=== PATIENT | male | born 1940 | race Caucasian/White ===

== ENCOUNTER 2019-01-05 11:25 | Observation (INO) ==
--- NOTE | 2019-01-05 12:29 | Diag Imaging Result Doc PS360 ---
EXAM: CHEST-PORTABLE HISTORY: syncope TECHNIQUE: Portable chest single view COMPARISON: 04/20/2018 FINDINGS: The lungs are well expanded. The heart is not enlarged. There is a left-sided pacemaker. The vessels are not distended. There are no infiltrates. No effusion identified. IMPRESSION: Negative exam. Electronically signed by Herrera Serrano 01/05/2019 12:27 PM
[2019-01-05 12:44] LABS: BASO# 0.02 X1000 (0.0-0.2); BASO% 0.2 % (0.0-0.8); EOS# 0.16 X1000 (0.0-0.7); EOS% 1.5 % (0.0-10.0); HEMATOCRIT 40.5 % (42.0-52.0); HEMOGLOBIN 13.9 g/dL (14.0-18.0); IMM GRAN# 0.06 X1000 (0.0-0.04); IMM GRAN% 0.6 % (0.0-0.5); LYMPH# 1.25 X1000 (1.2-3.4); LYMPH% 11.8 % (20.5-51.1); MCH 31.2 PG (27-31); MCHC 34.3 g/dL (33-37); MCV 90.8 FL (81-99); MONO# 1.05 X1000 (0.11-0.59); MONO% 9.9 % (1.7-9.3); MPV 10.2 FL (7.4-10.4); NEUT# 8.09 X1000 (1.4-6.5); PLT 148 X1000 (130-400); RBC 4.46 XMIL (4.7-6.1); RDW 12.8 % (11.5-14.5); WBC 10.63 X1000 (4.8-10.8)
[2019-01-05 12:45] LABS: INR 0.96; PROTIME 13.6 Seconds (11.0-16.0)
[2019-01-05 12:46] LABS: PTT 25.3 Seconds (22.3-41.8)
[2019-01-05 12:59] LABS: ALB/GLOB RATIO 1.5; CALCIUM 10.6 mg/dL (8.8-10.2); CREATININE 1.4 mg/dL (0.7-1.2); TOTAL BILIRUBIN 0.55 mg/dL (0.20-1.00); TOTAL PROTEIN 6.7 g/dL (6.3-8.3)
[2019-01-05 13:49] LABS: URINE SOURCE CLEAN CATCH
[2019-01-05 14:02] LABS: BILIRUBIN URINE NEGATIVE (NEGATIVE); BLOOD URINE TRACE (NEGATIVE); COLOR YELLOW; GLUCOSE URINE NEGATIVE (NEGATIVE); KETONE URINE 20 mg/dL (NEGATIVE); LEUKOCYTES URINE LARGE (NEGATIVE); NITRITE URINE NEGATIVE (NEGATIVE); PROTEIN URINE TRACE mg/dL (NEGATIVE); SP GRAVITY URINE 1.002; TURBIDITY URINE HAZY (CLEAR); UROBILINOGEN URINE NORMAL (NORMAL)
[2019-01-05 14:05] LABS: UR EPITHELIAL CELLS <10 /HPF (<10); URINE BACTERIA 4+ /HPF; URINE RBC <10 /HPF (<10); URINE WBC TNTC /HPF (<10)
--- NOTE | 2019-01-05 14:46 | Diag Imaging Result Doc PS360 ---
EXAM: CT HEAD W/O CONTRAST - 01/05/2019 HISTORY: syncope TECHNIQUE: CT head without contrast COMPARISON: 04/20/2018 FINDINGS: There are atrophic changes and mild chronic microvascular ischemic changes similar to prior. There is no indication of recent infarct, although acute infarcts may not be immediately visible. There is no evidence of intracranial hemorrhage, mass effect, midline shift, or hydrocephalus. IMPRESSION: No visible acute intracranial abnormality. No hemorrhage or mass effect. This exam was performed using automated exposure control, adjustment of mA or kV according to patient size, and/or use of iterative reconstruction technique. Electronically signed by Alphonso Domínguez 01/05/2019 2:44 PM
[2019-01-05] MEDS ORDERED: ROCEPHIN 1 GM in NS 50 ML IV ONE (15:18)
--- NOTE | 2019-01-05 16:19 | Diag Imaging Result Doc PS360 ---
EXAM: CT ANGIOGRAM NECK 01/05/2019 HISTORY: syncope/neck pain TECHNIQUE: This exam was performed using automated exposure control, adjustment of mA or kV according to patient size, and/or use of iterative reconstruction technique. COMMENT: 3-D MIPS were performed. There are no previous studies available for comparison. Both common carotid arteries are tortuous. There is heavy calcification present in the left carotid bulb. There is no apparent significant stenosis. The right vertebral artery is smaller than the left. There are some calcifications present in the proximal left vertebral artery. No evidence of aneurysm is present. There are hypertrophic changes in the cervical spine. IMPRESSION: Calcified plaque in the left carotid bulb without definite stenosis. Electronically signed by Tee Russell 01/05/2019 4:17 PM
[2019-01-05] MEDS ORDERED: NS 1,000 ML IV ONE (17:05)
[2019-01-05] MEDS ORDERED: LASIX IV ONE (19:26)
--- NOTE | 2019-01-05 19:49 | HISTORY AND PHYSICAL ---
PRIMARY CARE PHYSICIAN: Dario Kasper MD. MACHINE TECHNICIAN: Red Galindo MD. CHIEF COMPLAINT: Near syncope. HISTORY OF PRESENT ILLNESS: Mr. 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 He reports being in the shower today. As he was washing his hair, his vision became blurry and he closed his eyes and saw green and then black. He immediately got out of the shower and sat down on the commode. He did not pass out. He tried to alert his , but she was on the other side of the house and did not hear him. He stood up and tried to walk to the bed, at which point he became dizzy with the same type of visual symptoms as he had in the shower. He lay down on the bed and again did not pass out. At that point his came to check on him, and they came to the ER. He did report a few episodes somewhat similar to this last week. As he as bending to machine pecan picker objects, he would stand up and become dizzy. He denies any preceding chest pain. No slurred speech. No unilateral weakness. His does not report any confusion. The whole episode today lasted around 30 minutes. In the ER he had a head CT done which did not show anything acute. A neck CTA was also done, which showed calcified plaque in the left carotid bulb without definite stenosis. His laboratory data showed some mild anemia, some renal insufficiency and some mild hypercalcemia. He also reports last week he had some dysuria and continues to have difficulty starting stream. His urinalysis does show 4+ bacteria with large leukocytes and ssw-[id number]-ut-count WBCs. He has been admitted. We will start IV fluids and admit him for observation status. PAST MEDICAL HISTORY: 1. Tachy-britany syndrome, status post pacemaker. 2. Hypertension. 3. Chronic back pain. 4. MDS. 5. History of TIA. 6. Coronary artery disease. 7. Type 2 diabetes. PAST SURGICAL HISTORY: 1. Pacemaker placement. 2. Cholecystectomy. 3. Lumbar spine surgery. 4. ERCP with sphincterotomy and stone extraction. SOCIAL HISTORY: No tobacco, alcohol or drug use. His is at the bedside. REVIEW OF SYSTEMS: A 14-point review of systems was obtained and found to be negative with the exception of the HPI. ALLERGIES: Codeine, Reglan, and risperidone. HOME MEDICATIONS: Not yet compiled by the nursing staff. Will reconcile appropriately once placed in the computer. PHYSICAL EXAMINATION: VITAL SIGNS: Blood pressure 141/83, heart rate 82, respiratory rate 20, 02 saturation 96% on room air, temperature 97.5. GENERAL: Elderly-appearing 78-year-old male, lying in the hospital bed in no acute distress. NEUROLOGIC: He is oriented and follows commands without focal deficits. HEENT: Head is atraumatic, normocephalic. Pupils equal, round, and reactive to light. Oral mucosa is dry. Trachea is midline. There is no JVD. No carotid bruits. CHEST: Clear to auscultation bilaterally. CV: Regular rate and rhythm. S1 and S2 noted. GI: Soft, nondistended, nontender. Bowel sounds positive . EXTREMITIES: No edema. Pulses 1+ bilaterally. DIAGNOSTIC DATA: Head CT negative. CTA of the neck: Calcified plaque in the left carotid bulb without stenosis. WBCs 10.63, hemoglobin 13.9, hematocrit 40.5, platelet count 148. INR 0.96. Sodium is 137, potassium 4, chloride 98. CO2 is 22, anion gap 17, BUN 24, creatinine 1.4, glucose 149. Calcium 10.6. LFTs negative. Troponin negative x1 set, proBNP 172. UA does show a UTI. ASSESSMENT/PLAN: 1. Near-syncopal episode: The patient is volume depleted on physical exam and on labs, with mild elevation in his calcium and creatinine. Will continue IV fluids, trend cardiac enzymes and monitor response. If he is improved in the morning, then we will probably discharge him. If not, he may need his pacemaker evaluated. We will also treat his underlying urinary tract infection. 2. Acute kidney injury: Again likely volume depletion, prerenal in nature. Will continue IV fluids, check urine electrolytes and calculate a FENa. 3. Urinary tract infection. The patient is symptomatic. Will treat with IV Rocephin and transition to oral in the next 24 hours. 4. Sick sinus syndrome, status post pacemaker: The patient denies chest pain. For now will monitor his telemetry. If he has any abnormalities, would consider a Cardiology consult and evaluation of pacemaker. 5. Diabetes mellitus type 2. Will check to make sure his hemoglobin A1c is up to date. Pattern sugar and sliding scale insulin. 6. Deep venous thrombosis prophylaxis with sequential compression devices. 7. Further recommendations to follow. Dictated by DEDRA Boyd for Bartolo Boudreaux MD cc: DEDRA Boyd MD
--- NOTE | 2019-01-05 20:53 | HISTORY AND PHYSICAL ---
ADDENDUM - HISTORY AND PHYSICAL: Mr. Pastor came into the emergency department this morning. I saw him in the ER. The was at the bedside at the time of the encounter. Mr. Pastor refers that he was taking a shower. He felt some nauseating in his stomach and he started having a tunnel vision. He came out, was down and went and sat on the bedside commode. He felt better. After that he started walking to the bedside and he felt the same, almost passed out. He called out to the who came to his assistance and he was brought here to the emergency room. His orthostatic vitals revealed : supine his blood pressure was 128/70, by sitting up his blood pressure went down to 91/55, which was remarkably positive and this was associated with symptoms. I have also reviewed his imaging studies, including a head CT scan and a CTA of the neck. LABORATORY WORK: His current lab work has also been reviewed. His creatinine is up to 1.4. The baseline is 1.0 just March of last year. ASSESSMENT: 1. Syncope at home secondary to orthostatic hypotension. 2. Clinical volume depletion. 3. Acute kidney injury secondary to volume depletion. 4. Bilateral nonobstructive carotid plaque without definite stenosis. 5. History of diabetes mellitus, controlled. 6. Hypertension. PLAN: So, in general, I think Mr. Pastor is doing a little better. He still remains remarkably dehydrated. We are going to continue with the IV fluids. We will withhold his blood pressure medications and re-evaluate him tomorrow morning. I have also reviewed the History and Physical that has been dictated by the SALES REPRESENTATIVE JEWELRY, I agree. Please refer to the details in the chart. cc: Bartolo Boudreaux MD MTDD
[2019-01-05] MEDS: HUMULIN R SUBQ SCH (22:32)
[2019-01-06] MEDS: NS 1,000 ML IV SCH ×4 (00:05→19:47)
--- NOTE | 2019-01-06 07:05 | PROVIDER DOCUMENTATION ---
This chart was entered by Nakita Madrid Scribe, acting as scribe for Rohit Ludwig MD. HPI-General Adult - General Chief Complaint: Near Syncope Stated Complaint: NEAR SYNCOPE Time Seen by Provider: 01/05/19 12:03 Source: patient, family, EMS Allergies/Adverse Reactions: Patient Allergies Allergy/AdvReac Type Severity Reaction Status Date / Time codeine Allergy Unknown Verified 04/20/18 20:16 metoclopramide HCl * Allergy Unknown Verified 04/20/18 20:16 [From Reglan] risperidone [From Risperdal] Allergy Unknown Verified 04/20/18 20:16 Home Medications: Home Medication List Medication Instructions Recorded Confirmed Last Taken Type Aspirin 81 mg PO DAILY 02/26/14 04/21/18 04/20/18 09:00 History Clopidogrel Bisulfate [Plavix] 75 mg PO DAILY 02/26/14 04/21/18 04/20/18 09:00 History Finasteride [Proscar] 5 mg PO QHS 02/26/14 04/21/18 04/20/18 09:00 History Niacin E.r. [Niaspan] 2,000 mg PO QHS 02/26/14 04/21/18 04/20/18 21:00 History Multivitamin with Minerals 1 each PO DAILY 02/27/14 04/21/18 04/20/18 09:00 Hi story [Multiple Vitamin] Allopurinol 300 mg PO DAILY 05/14/16 04/21/18 04/20/18 09:00 History Nystatin Powder [Mycostatin Powder] 1 applicatn TOP BID 04/21/18 04/21/18 Unknown History Nystatin/Triamcin Cream [Mycolog 04/21/18 04/21/18 Unknown History Cream] - History of Present Illness -Gen Adult Nature of Presenting Problems: 78 yowm presents to the ed with c/o near syncope and dizziness. pt sts was in the shower when he felt faint. pt was able to get out sit on the toilet rest and then go lay in the bed. pt on exam is nontoxic in appearance and has family at bedside pt c/o posterior neck pain and sts change of position makes dizziness worse Location of Pain/Injury: reports: neck (posterior bilateral muscle spasm) Pain Radiation: reports: no radiation Quality of Pain: reports: aching Severity: reports: moderate Onset/Duration: reports: just prior to arrival Timing: reports: improving Context/Activities at Onset: reports: light activity Modifying Factors: improves with: nothing Associated Symptoms: reports: back/neck pain (posterior neck pain), dizziness. denies: chest pain, fever/chills, nausea, shortness of breath, syncope (near syncope), vomiting Similar Symptoms Previously?: Yes Recently seen or treated by another doctor?: No Review of Systems - Adult - REVIEW OF SYSTEMS - ADULT Constitutional: denies: chills, fever Eyes: reports: no symptoms reported Ears, Nose, Mouth & Throat: reports: no symptoms reported Cardiovascular: denies: chest pain, palpitations, syncope (near syncope) Respiratory: reports: no symptoms reported Gastrointestinal: denies: abdominal pain, diarrhea, nausea, vomiting Genitourinary: reports: no symptoms reported Musculoskeletal: reports: see HPI, muscle aches, neck pain Integumentary: reports: no symptoms reported Neurological: denies: dizziness/vertigo, headache/migraines, slurred speech, syncope, tremors Psychiatric: reports: no symptoms reported Endocrine: reports: no symptoms reported Hematologic/Lymphatic: reports: no symptoms reported Allergic/Immunologic: reports: no symptoms reported All Other Systems: Reviewed and Negative Past History - Adult - PAST MEDICAL HISTORY-ADULT Review of Records: reports: Nursing Assessment Review, Medications Reviewed Major Childhood Illnesses: reports: denies history Cardiovascular: reports: HTN, hyperlipidemia, pacemaker Respiratory: reports: sleep apnea Gastrointestinal: reports: denies history Genitourinary: reports: denies history Musculoskeletal: reports: chronic pain (back) Neurological: reports: TIA Endocrine/Immune: reports: Diabetes Other Conditions: reports: other (sick sinus syndrome w/ pacemaker, Agent [place] exposure, B12 deficiency, MDS) - PRIOR SURGERIES/PROCEDURES Surgical/Procedure History: reports: cholecystectomy, pacemaker (2001, 2011), other (pacemaker, back L4 L5/fibroma removed from R breast, L leg) - IMMUNIZATION STATUS Childhood Immunizations: See Nurse Assessment Flu Vaccine: See Nurse Assessment - FAMILY HISTORY Family History: reviewed, not pertinent - SOCIAL HISTORY Smoking: quit greater than 1 year Substance Use: denies Alcohol Use Frequency: never Living Situation: family Physical Exam-General - PHYSICAL EXAM-ADULT Initial Vital Signs Reviewed: Yes - CONSTITUTIONAL General Appearance: alert, no apparent distress, obese - EYES Eyes: PERRL/EOMI, pink conjunctivae - HEAD, EARS, NOSE, MOUTH & THROAT HENMT: moist mucous membranes, normal ENT inspection - NECK Neck: full range of motion, supple, normal inspection, tender lateral (bilate ral) - RESPIRATORY Respiratory: chest non-tender, lungs clear, normal breath sounds - CARDIOVASCULAR Cardiovascular: normal peripheral pulses, regular rate, rhythm - GASTROINTESTINAL (ABDOMEN) Abdominal Exam: normal bowel sounds, non tender, soft - LYMPHATIC Lymphatic: no adenopathy - MUSCULOSKELETAL Back Exam: normal inspection, no CVA tenderness, no vertebral tenderness Extremity: normal capillary refill, pelvis stable - SKIN Integumentary: normal turgor, warm/dry, pallor - NEUROLOGIC Neurologic: grossly normal, no motor/sensory deficits - PSYCHIATRIC Psych/Mental Status: normal mood/affect, normal thought content, normal thought process, oriented x 3 Progress - PLAN OF CARE/RESULTS Progress/Plan/Lab Results: Vital Signs - 8 hr 01/05/19 11:27 Temperature 97.5 F L Pulse Rate 90 Respiratory Rate 20 Blood Pressure 126/72 O2 Sat by Pulse Oximetry 94 L Orders Category Date Time Status ED: Orthostatic Vital Signs (E as directed Care 01/05/19 12:15 Active CHEST-PORTABLE [RAD] Stat Exams 01/05/19 12:[address] HEAD W/O CONTRAST [CT] Stat Exams 01/05/19 12:15 Ordered CTA [CT ANGIOGRAM NECK] [CT] Stat Exams 01/05/19 12:16 Ordered CBC WITH ELECTRONIC DIFF [HEME] Stat Lab 01/05/19 12:20 Ordered CK PROFILE [SP CHEM] Stat Lab 01/05/19 12:20 Ordered COMPREHENSIVE METABOLIC PANEL [CHEM] Stat Lab 01/05/19 12:20 Ordered PRO B-NATRIURETIC PEPTIDE Stat Lab 01/05/19 12:20 Ordered PROTIME WITH INR [COAG] Stat Lab 01/05/19 12:20 Ordered PTT [COAG] Stat Lab 01/05/19 12:20 Ordered TROPONIN T Stat Lab 01/05/19 12:20 Ordered URINALYSIS W/POSS RFLX CULT [URINALYSIS] Stat Lab 01/05/19 12:15 Uncollected Result Diagrams: 01/05/19 12:12 01/05/19 12:12 - REASSESSMENT Reassessment #1 Time Reassessed: 13:51 Status: improving Reassessment #2 Time Reassessed: 17:16 Status: unchanged - EKG 1 Time of EKG reading by physician:: 12:07 EKG Read and Signed by:: Rohit Ludwig EKG Interpretation (*Must complete 3 of following elements*): Normal Rate: 92 Rhythm: sinus rhythm with occ pvc and fusion copmplexes [place]: normal QRS: PVC's [place] Interval: normal ST Wave: normal - XRAY 1 XRAY: Bilateral XRAY Study: Chest Impression: See EMR Report (EXAM: CHEST-PORTABLE HISTORY: syncope TECHNIQUE: Portable chest single view COMPARISON: 04/20/2018 FINDINGS: The lungs are well expanded. The heart is not enlarged. There is a left-sided pace maker. The vessels are not distended. There are no infiltrates. No effusion identified. IMPRESSION: Negative exam. Electronically signed by Herrera Serrano 01/05/2019 12:27 PM 01/05/19 1227 Interpreting Physician: Herrera Serrano MD Dictated Date/Time: 01/05/19 1226 cc: Rohit Ludwig MD; Dario Kasper) - CT/MRI 1 CT Study: Head Impression: See EMR Report (EXAM: CT HEAD W/O CONTRAST - 01/05/2019 HISTORY: syncope TECHNIQUE: CT head without contrast COMPARISON: 04/20/2018 FINDINGS: There are atrophic changes and mild chronic microvascular ischemic changes similar to prior. There is no indication of recent infarct, although acute infarcts may not be immediately visible. There is no evidence of intracranial hemorrhage, mass effect, midline shift, or hydrocephalus. IMPRESSION: No visible acute intracranial abnormality. No hemorrhage or mass effect. This exam was performed using automated exposure control, adjustment of mA or kV according to patient size, and/or use of iterative reconstruction technique. Electronically signed by Alphonso Domínguez 01/05/2019 2:44 PM 01/05/19 1444 Interpreting Physician: Alphonso Domínguez MD Dictated Date/Time: 01/05/19 1441 cc: Rohit Ludwig MD; Dario Kasper) 2 CT Study: Angiogram Impression: See EMR Report (EXAM: CT ANGIOGRAM NECK 01/05/2019 HISTORY: syncope/neck pain TECHNIQUE: This exam was performed using automated exposure control, adjustment of mA or kV according to patient size, and/or use of iterative reconstruction technique. COMMENT: 3-D MIPS were performed. There are no previous studies available for comparison. Both common carotid arteries are tortuous. There is heavy calcification present in the left carotid bulb. There is no apparent significant stenosis. The right vertebral artery is smaller than the left. There are some calcifications present in the proximal left vertebral artery. No evidence of aneurysm is present. There are hypertrophic changes in the cervical spine. IMPRESSION: Calcified plaque in the left carotid bulb without definite stenosis. Electronically signed by Tee Russell 01/05/2019 4:17 PM 01/05/19 1617 Interpreting Physician: Tee Russell MD Dictated Date/Time: 01/05/19 1611 cc: Rohit Ludwig MD; Dario Kasper) - CONSULTS/PCP/HOSPITALIST Notification #1 *Consult/PCP/Hospitalist*: hospitalist arsh at bedside Time Discussed: 15:34 Consult Disposition: Admit Departure - Departure Date of Disposition Decision: 01/05/19 Time of Disposition Decision: 17:22 DIAGNOSIS: Syncope Qualifiers: Syncope type: unspecified Qualified Code(s): R55 - Syncope and collapse Disposition: ADMITTED INPATIENT 09 Certified Medical Emergency: Emergent Condition: Stable Additional Freetext Instructions: ED Follow Up Instructions: You have been treated by a care provider in the Emergency Department. These instructions are being provided to you so you can have an understanding of how to care for yourself upon discharge. Upon discharge from the Emergency Department, you are responsible for making arrangements for follow-up care by a physician of your choice. Take all prescribed medications as directed. Return to the Emergency Department immediately for any new or worsening symptoms. You may call the Physician Referral phone number at [phone] to obtain a list of Physicians who are taking new patients. Referrals and Follow-Ups: Dario Kasper [Primary Care Provider] - - Critical Care Note This patient required my direct & personal management of CC.: Yes Total Time (mins): 38 Critical Care Statement: This patient required my direct personal management to treat or rule out processes, the absence of which, could potentiallly result in sudden, clinically significant life or limb threatening deterioration. Attestation - Physician/ [place] Attestation Patient care was provided by Advanced Practice Provider:: No The physician spent face to face time with patient:: Yes Advanced Practice Provider documentation review:: Supervising physician onsite and consulted in the evaluation and care of this patient. The physician did have a face to face encounter with the patient. This chart was documented by the indicated scribe, (Nakita Madrid Scribe) and accurately reflects the services I performed and decisions made by me, Rohit Ludwig MD, as attested by the provider's signature.
[2019-01-06 07:07] LABS: HEMATOCRIT 36.2 % (42.0-52.0); HEMOGLOBIN 12.3 g/dL (14.0-18.0); MCH 31.1 PG (27-31); MCV 91.4 FL (81-99); MPV 9.7 FL (7.4-10.4); PLT 152 X1000 (130-400); RBC 3.96 XMIL (4.7-6.1); RDW 12.8 % (11.5-14.5); WBC 6.65 X1000 (4.8-10.8)
[2019-01-06 07:08] LABS: BASO# 0.01 X1000 (0.0-0.2); BASO% 0.2 % (0.0-0.8); EOS# 0.21 X1000 (0.0-0.7); EOS% 3.2 % (0.0-10.0); IMM GRAN# 0.03 X1000 (0.0-0.04); IMM GRAN% 0.5 % (0.0-0.5); LYMPH% 21.1 % (20.5-51.1); MONO# 0.78 X1000 (0.11-0.59); MONO% 11.7 % (1.7-9.3); NEUT# 4.22 X1000 (1.4-6.5); NEUT% 63.3 % (42.2-75.2)
[2019-01-06 07:43] LABS: AGAP 10; BUN 19 mg/dL (8-22); CALCIUM 9.6 mg/dL (8.8-10.2); CHLORIDE 105 mmol/L (98-107); COSMO 284; ESTIMATED GFR > 60; GLUCOSE 169 mg/dL (70-104); MAGNESIUM 1.9 mg/dL (1.5-2.7); POTASSIUM 4.1 mmol/L (3.5-5.1); SODIUM 139 mmol/L (136-145); TCO2 24 mmol/L (25-35)
--- NOTE | 2019-01-06 11:25 | EKG Report ---
Test Performed on : 01/05/2019 12:07:23 PM Test Reason : ED. NO EKG ORDER FOR MUSE Blood Pressure : / mmHG Vent. Rate : 092 BPM Atrial Rate : 092 BPM P-R Int : 144 ms QRS Dur : 090 ms QT Int : 360 ms P-R-T Axes : 006 032 047 degrees QTc Int : 445 ms Sinus rhythm. with occasional premature ventricular complexes. and fusion complexes Otherwise normal ECG When compared with ECG of 20-APR-2018 17:55, fusion complexes are now present premature ventricular complexes. are now present Unconfirmed Result
[2019-01-06] MEDS: HUMULIN R SUBQ SCH ×3 (11:27→21:21)
--- NOTE | 2019-01-06 14:08 | CARDIOLOGY CONSULTATION ---
DATE: 01/06/2019 CHIEF COMPLAINT ON PRESENTATION: Near syncope. HISTORY OF PRESENT ILLNESS: Mr. Pastor is a 78-year-old, white male with a history of coronary disease normally followed in my office. I last saw the patient in October 2018. On Friday he reported he woke up and took a shower per his usual fashion. While in the shower he felt quite lightheaded and had some vision changes with blurry and dark vision. He felt very lightheaded. He sat down,recovered after a few minutes, did not have any overt syncope. He then attempted to get out of the shower and go to the bed. Upon walking out of the shower he again and got very lightheaded and made it to the bed and laid down and again recovered after several minutes. He subsequently presented to the hospital for further evaluation. He had no chest pain. He had no overt syncope. He denies any recent orthopnea. He reports recent physical exertion over his usual at home. No recent fevers. PAST MEDICAL HISTORY: 1. Coronary disease with last cardiac catheterization performed in 2007 in [place]. Left main was normal on that study. LAD had mild diffuse disease. Circumflex has 40% ostial disease with a 40% obtuse marginal lesion. Mid circumflex had a widely patent stent. The RCA had a subtotal mid occlusion with well developed collaterals to the distal right from the left system. His last nuclear scan was in 2015 with normal perfusion and an ejection fraction of 72%. 2. History of ischemic cardiomyopathy again with normal ejection fractions on most recent studies. 3. 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 This is a [employer] device. 4. Hypertension. 5. Hyperlipidemia. 6. Diabetes. 7. Carotid artery disease with history of transient ischemic attack. 8. Myelodysplastic syndrome. 9. Sleep apnea. SOCIAL HISTORY: He does not smoke. FAMILY HISTORY: Significant for hypertension. REVIEW OF SYSTEMS: A 10 system review of systems is negative except for those things mentioned in HPI. PHYSICAL EXAMINATION: During this hospitalization the patient has been afebrile. His heart rate most recently was 80 with a blood pressure 132/77. Earlier in the stay he did have orthostatics that was yesterday at 1 p.m. His supine heart rate was 90, blood pressure is 128/70 with a standing heart rate of 96 and a blood pressure 101/61. Based on that it did appear that he was orthostatic.General: He is in no acute distress. He is pleasant. He has no acute complaints currently. HEENT: Oropharynx is moist. Normal dentition. Eye examination is pink conjunctivae. White sclerae. Neck: Examination shows no obvious thyromegaly or thyroid tenderness. Cardiovascular: He sounds to be in a regular rate and rhythm. He has no obvious murmurs. He has no S3 present. He has no lower extremity edema. Chest: Exam sounds clear bilaterally. He has no increased work of breathing. Abdomen: Soft, nontender. He has no obvious organomegaly. Skin: Warm and dry throughout without any rashes. Neurological: Moving all extremities well. He has no lateralizing deficits. Psychiatric: Alert, oriented, pleasant. Normal mood and affect. Data: He had a head CT showing no evidence of acute abnormalities. He had neck CTA showing calcified plaque in the left carotid bulb without any significant stenosis. His telemetry this hospitalization has been unremarkable for any acute findings. His electrocardiogram demonstrates a sinus rhythm, it appears like an occasional PVC. I do not see any paced beats on that study. He had a device interrogation during this day that did not show any acute events corresponding to his symptoms. His white count is 6.6, hematocrit 36, platelet count 152,000. Sodium 139, potassium 4.1, BUN 19, creatinine is 1. His presenting BUN and creatinine were 24 and 1.4. Cardiac enzymes are negative. ProBNP 172. ASSESSMENT: Mr. Pastor is a 78-year-old gentleman who presented with near syncope. PLAN: His device interrogation has been unremarkable. His symptoms seemed to correspond to orthostasis which was confirmed by his vital signs as well as his BUN and creatinine ratio. This has improved with hydration. I do not have any recommendations from an acute cardiovascular standpoint. From my standpoint, he can likely be discharged home and could consider backing off on his medications. Specifically I would probably stop the lisinopril which is at an extremely low dose of 2.5 mg daily. Otherwise contact us if we can be of further assistance. cc: Red Galindo MD
--- NOTE | 2019-01-06 14:49 | PROGRESS NOTE ---
DATE: 01/06/2019 SUBJECTIVE: This morning, Mr. Pastor refers to be feeling a whole lot better. He said when he got up, he felt slightly dizzy but for the most part, he felt better. He said he did not feel his vision tunneling down and he did not have any more syncopal episode. OBJECTIVE: Vital Signs: Blood pressure is 133/77, pulse is 80, respirations are 14, temperature is 99.4 degrees. The patient's orthostatic vitals this morning were unremarkable. General Examination: Mr. Pastor is a 78-year-old, gentleman. He was in bed. Not seemingly distressed. HEENT: Mucosa is pink. Still slightly dry. Anicteric. Acyanotic. Neck: Supple. Chest: Clear to auscultation. No crepitations. No rhonchi. Cardiovascular: Regular rate and rhythm. Abdomen: Soft. Extremities: No pedal edema. NEWS PRODUCTION ASSISTANT: The patient is awake, alert, oriented. He follows basic commands. Laboratory Data: Has also been reviewed. CBC only shows borderline normocytic anemia. Chemistry: The creatinine has normalized. Glucose is 169. Troponins have been negative. From cardiology report, I understand the pacemaker has been interrogated and it was unremarkable. ASSESSMENT: 1. Syncope on presentation secondary to orthostatic hypotension, improving. 2. Clinical volume depletion. We will continue with gentle intravenous fluids. 3. Acute kidney injury secondary to volume depletion, resolved. 4. Bilateral nonobstructive carotid plaque without definite stenosis. Patient is on statin therapy. 5. Diabetes mellitus, controlled. 6. Hypertension, controlled. 7. Suspected urinary tract infection. The patient did confirm this morning that he was having some urinary symptoms including urinary frequency and strenuous micturition with poor flow. I suspect he might have an underlying benign prostatic hypertrophy. We would continue with the current antibiotics and we will also start him on Flomax at night. Side effects of Flomax including orthostatic hypotension have been discussed with him and he has been advised to follow up with a urologist. PLAN: This morning, we have consulted cardiology to evaluate him. I have read the report this afternoon. They have recommended to withhold his blood pressure medication, pending the final report on his urine culture and hopefully we can get him home tomorrow. cc: Bartolo Boudreaux MD
[2019-01-06] MEDS: ROCEPHIN 1 GM in NS 50 ML IV SCH ×2 (17:39→19:46)
[2019-01-06] MEDS ORDERED: FLOMAX PO SCH (21:00)
[2019-01-07] MEDS: NS 1,000 ML IV SCH (04:06)
[2019-01-07 06:38] LABS: BASO# 0.02 X1000 (0.0-0.2); BASO% 0.3 % (0.0-0.8); EOS# 0.22 X1000 (0.0-0.7); EOS% 3.4 % (0.0-10.0); HEMATOCRIT 36.7 % (42.0-52.0); HEMOGLOBIN 12.5 g/dL (14.0-18.0); IMM GRAN# 0.04 X1000 (0.0-0.04); IMM GRAN% 0.6 % (0.0-0.5); LYMPH# 1.61 X1000 (1.2-3.4); LYMPH% 24.8 % (20.5-51.1); MCH 30.9 PG (27-31); MCHC 34.1 g/dL (33-37); MCV 90.8 FL (81-99); MONO# 0.69 X1000 (0.11-0.59); MONO% 10.6 % (1.7-9.3); NEUT# 3.92 X1000 (1.4-6.5); NEUT% 60.3 % (42.2-75.2); PLT 144 X1000 (130-400); RBC 4.04 XMIL (4.7-6.1); RDW 12.7 % (11.5-14.5)
[2019-01-07] MEDS: HUMULIN R SUBQ SCH ×2 (06:48→11:31)
[2019-01-07 07:07] LABS: AGAP 10; BUN 16 mg/dL (8-22); CALCIUM 9.6 mg/dL (8.8-10.2); CHLORIDE 105 mmol/L (98-107); COSMO 279; CREATININE 1.1 mg/dL (0.7-1.2); ESTIMATED GFR > 60; GLUCOSE 97 mg/dL (70-104); MAGNESIUM 1.8 mg/dL (1.5-2.7); SODIUM 139 mmol/L (136-145); TCO2 24 mmol/L (25-35)
[2019-01-07 08:19] VITALS: BP 138/72
--- NOTE | 2019-01-08 12:14 | DISCHARGE SUMMARY ---
ADMISSION DATE: 01/05/2019 DISCHARGE DATE: 01/07/2019 DISPOSITION: Home. FOLLOW UP: 1. Dr. Kasper 2. Dr. Red Galindo. CONSULTATIONS DURING ADMISSION: Cardiology was consulted. Patient was seen by Dr. Rde Galindo. INVASIVE PROCEDURES DONE DURING ADMISSION: None. OTHER PROCEDURES DONE: The patient's pacemaker was interrogated and it was normal. IMAGING STUDIES OF SIGNIFICANCE: 1. Chest x-ray was negative. 2. A CT scan of the head without contrast showed no visible acute intracranial pathology. 3. A CTA of the neck showed calcified plaque in the left carotid bulb without definite stenosis. ADMISSION DIAGNOSES: 1. Syncope. 2. Clinical volume depletion. 3. Acute kidney injury. 4. Diabetes mellitus. DIAGNOSES AT TIME OF DISCHARGE: 1. Syncope on presentation secondary to orthostatic hypotension resolved. 2. Clinical volume depletion improved. 3. Acute kidney injury secondary to volume depletion resolved. 4. Bilateral nonobstructive carotid plaque with definite stenosis. The patient is on aspirin and statin. 5. Diabetes mellitus controlled. 6. Hypertension controlled. 7. Urine frequency secondary to benign prostatic hypertrophy. Patient is on Flomax. Urine culture did show no growth yesterday however, at the time of dictation, it had come back as gram-positive cocci. 8. The patient was on ceftriaxone during the hospital course. PRESENTING COMPLAINT: Near syncope. HISTORY OF PRESENTING COMPLAINT: Mr. Patsor is a 78-year-old gentleman who came to the emergency department because of near syncope. Upon presentation, he was evaluated and was found to be positive on orthostatic vitals. He was admitted for further medical evaluation. HOSPITAL COURSE: Mr. Pastor was admitted to the medical floor under tele monitoring. He was adequately fluid resuscitated. Cardiology was consulted. Patient was seen by Dr. Red Galindo. The patient;s pacemaker was interrogated and it was functioning well. During the hospital course, Mr. Pastor continued to improve. He did not have any more dizziness, and no more syncopal episode. His orthostatic vitals were done a couple of more times which became normal. He did also admit that he was having urinary frequency and some itching during urination. His initial urinalysis was dirty, so he was started on IV antibiotics. Up until this morning, his urine culture was negative. However, he was already on antibiotics waiting for the final culture report. At the time of this dictation, it appears that he is showing gram-positive cocci, and I will be going to follow up on that. At the time of the discharge, Mr. Pastor was clinically stable. He denied any complaints. He has been tolerating his diet and has had regular bowel movement so we think he is stable for discharge today. He is going to follow up with his primary care doctor, and also his enhanced environmental operator. All of the discharge instructions have been discussed with him. He voiced understanding. TIME SPENT FOR DISCHARGE: 36 minutes. cc: MD Dario Mahmood MD Peter Johnson, MD
== END 2019-01-07 14:54 | disposition home or self-care (01) ==
LOC: SUPCPDRO → ED 11:25 → EDIPHOLD 11:25 → 4N 20:39
PROVIDERS: ATTEND Internal Medicine
CPT/HCPCS: 70450; 70498; 71010; 71045; 80048; 80053; 81001; 82550; 82948; 83036; 83735; 83880; 84484; 85025; 85610; 85730; 87077; 87088; 87186; 93005; 96365; 99285; A9270; J0696; J7030; Q9967; XXXXX